=== PATIENT | male | born 1970 | race Hispanic/Latino ===

== ENCOUNTER 2018-10-29 09:30 | Emergency (ER) | payer OTHER ==
[~2018-10-29] VITALS: Ht 170.2 cm; Wt 88.0 kg
[2018-10-29] MEDS ORDERED: METFORMIN500 M1 PO (10:12)
[2018-10-29] MEDS ORDERED: ZYRTEC10 M5 PO (10:12)
[2018-10-29] MEDS ORDERED: PREDNISONE50 MG PO (10:12)
[2018-10-29] MEDS ORDERED: LISINOPRIL20 MG PO (10:12)
[2018-10-29] MEDS ORDERED: PERMETHRIN5 % EX (10:12)
[2018-10-29 10:30] VITALS: BP 149/98
== END 2018-10-29 10:30 | disposition home or self-care (01) | DRG 916 ==
LOC: ED 09:30
DX: T78.40XA Allergy, unspecified, initial encounter (principal); I10 Essential (primary) hypertension; E11.9 Type 2 diabetes mellitus without complications; Z79.84 Long term (current) use of oral hypoglycemic drugs